=== PATIENT | female | born 1990 ===

== ENCOUNTER 2018-07-23 17:19 | Inpatient (IN) | payer OTHER ==
[~2018-07-23] VITALS: Ht 170.2 cm; Wt 77.1 kg
[2018-07-23] MEDS ORDERED: PRENATAL TABLE1 EAC1 PO (17:49)
== END 2018-07-27 12:53 | DRG 788 ==
LOC: LDR 17:19 → OB/GYN 19:07 → LDR 19:20 → O/R 07-24 17:50 → OB/GYN 07-24 19:16
PROVIDERS: ADMIT Obstetrics & Gynecology
PROC: 3E0P7VZ Introduction of Hormone into Female Reproductive, Via Natural or Artificial Opening (ICD-10-PCS; 2018-07-23)
PROC: 3E033VJ Introduction of Other Hormone into Peripheral Vein, Percutaneous Approach (ICD-10-PCS; 2018-07-23)
PROC: 4A1HXCZ Monitoring of Products of Conception, Cardiac Rate, External Approach (ICD-10-PCS; 2018-07-23)
PROC: 10D00Z1 Extraction of Products of Conception, Low, Open Approach (ICD-10-PCS; principal; 2018-07-24 16:00)
DX: O61.0 Failed medical induction of labor (principal); Z3A.39 39 weeks gestation of pregnancy; Z37.0 Single live birth

== ENCOUNTER 2021-05-15 10:15 | Inpatient (IN) | payer OTHER ==
[~2021-05-15] VITALS: Ht 170.2 cm; Wt 3.6 kg
[~2021-05-15 10:15] MED LIST: PRENATAL TABLE1 EAC1 PO
[2021-05-15] MEDS ORDERED: PRENATAL + DHA1 EAC1 PO (12:35)
[2021-05-21] MEDS ORDERED: ULTRACET PO (10:42)
== END 2021-05-21 14:17 | disposition home or self-care (01) | DRG 788 ==
LOC: LDR 05-18 07:00 → OB/GYN 05-18 07:06 → O/R 05-18 07:06 → LDR 05-18 10:15 → OB/GYN 05-18 15:59
PROVIDERS: ADMIT Obstetrics & Gynecology; ATTEND Obstetrics & Gynecology
PROC: 4A1HXFZ Monitoring of Products of Conception, Cardiac Rhythm, External Approach (ICD-10-PCS; 2021-05-18)
PROC: 10D00Z1 Extraction of Products of Conception, Low, Open Approach (ICD-10-PCS; principal; 2021-05-18 07:00)
DX: O34.211 Maternal care for low transverse scar from previous cesarean delivery (principal); Z37.0 Single live birth; Z3A.39 39 weeks gestation of pregnancy